=== PATIENT | female | born 1980 | race Caucasian/White ===

== ENCOUNTER 2018-04-07 18:05 | Emergency (ER) | payer SELFPAY ==
[2018-04-07 18:37] LABS: ABSOLUTE LYMPHOCYTES (AUTO) 1.8 10^3/uL (0.5-4.7); ABSOLUTE MONOCYTES (AUTO) 0.9 10^3/uL (0.1-1.4); ABSOLUTE NEUT (AUTO) 7.7 10^3/uL (1.7-8.2); BASOPHILS % (AUTO) 0.5 % (0-2); EOSINOPHILS % (AUTO) 0.4 % (0-6); HEMATOCRIT 36.5 % (36.0-47.0); HEMOGLOBIN 12.1 g/dL (12.0-15.5); LYMPHOCYTES % (AUTO) 16.9 % (13-45); MEAN CORPUSCULAR HEMOGLOBIN 29.4 pg (27.0-33.4); MEAN CORPUSCULAR HGB CONC 33.3 g/dL (32.0-36.0); MEAN CORPUSCULAR VOLUME 89 fl (80-97); MONOCYTES % (AUTO) 8.9 % (3-13); PLATELET COUNT 306 10^3/uL (150-450); RED BLOOD COUNT 4.13 10^6/uL (3.72-5.28); RED CELL DISTRIBUTION WIDTH 14.2 % (11.5-14.0); SEGMENTED NEUTROPHILS % (AUTO) 73.3 % (42-78); TOTAL CELLS COUNTED % (AUTO) 100 %; WHITE BLOOD COUNT 10.5 10^3/uL (4.0-10.5)
[2018-04-07] MEDS ORDERED: METOCLOPRAMIDE HCL INJ/PF 10 MG/2 ML SDV IV ONE (18:41)
[2018-04-07] MEDS ORDERED: NORMAL SALINE 1000 ML 1,000 ML IV ONE (18:41)
--- NOTE | 2018-04-07 18:50 | ER Document Report ---
ED General - General Chief Complaint: Chest Pain Stated Complaint: CHEST PAIN Time Seen by Provider: 04/07/18 18:18 Notes: Patient is a 37-year-old female with a past medical history of Crohn's disease who presents with complaints of an acute onset headache and chest pain. The patient states that this started abruptly at approximately 5:15 PM while she was getting gasoline. The patient states that the headache is located to the left side of her head and is a severe, constant, stabbing pain worsened by light. Nothing improves the headache. She denies any history of similar headaches in the past. Headache has been relatively unchanged since onset. She also describes a stabbing pain to the left side of her chest radiating into her left upper extremity. Nothing seems to improve or worsen the symptom. EMS was contacted, give aspirin nitroglycerin with minimal improvement of the patient's symptoms. She has not spoken to her primary doctor regarding today's concerns. She denies any prior history of migraine headaches. She denies any focal weakness or numbness but does states that she feels globally tired and weak. TRAVEL OUTSIDE OF THE [place] IN LAST 30 DAYS: No - Related Data Allergies/Adverse Reactions: hydrocodone [Hydrocodone] Adverse Reaction (Verified 04/07/18 18:08) Past Medical History - Social History Smoking Status: Unknown if Ever Smoked Chew tobacco use (# tins/day): No Frequency of alcohol use: None Drug Abuse: None Family History: Reviewed & Not Pertinent Patient has suicidal ideation: No Patient has homicidal ideation: No Renal/ Medical History: Denies: Hx Peritoneal Dialysis GI Medical History: Reports: Hx Crohn's Disease Past Surgical History: Reports: Hx Tubal Ligation - Immunizations Immunizations up to date: Yes Hx Diphtheria, Pertussis, Tetanus Vaccination: No Physical Exam - Vital signs Vitals: Resp BP Pulse Ox 17 121/80 98 04/07/18 18:20 04/07/18 18:20 04/07/18 18:20 Course - Re-evaluation Re-evalutation: 04/07/18 18:51 Patient was seen shortly after arrival, no focal neurologic deficits on examination but is complaining of an acute onset headache as well as chest pain. The characterization and the acuity of her headache is worrisome for possible acute subarachnoid hemorrhage the patient will be sent acutely for a CT of the head to further clarify. Patient is obtain a CT of the head within 2 hours of onset of her headache and will be sufficient to exclude a subarachnoid hemorrhage. Regarding her chest pain: Given that the patient had chest pain and headache at the same time a carotid artery dissection will be a consideration although she has no neurologic symptoms to suggest this diagnosis. Will obtain a CTA of the neck to further clarify. Low clinical suspicion for an acute pulmonary embolus given her characterization of discomfort and absence of any shortness of breath. Patient was initially noted to be mildly tachycardic although this could be secondary to a pain response. ACS also seems unlikely given the characterization of her pain, normal EKG although we will proceed with cardiac marker testing to further clarify. Chest x-ray will also be obtained to further evaluate for a low probability of a pneumothorax. Will also provide symptomatic treatment with metoclopramide as well as IV fluids. Will reassess this in the CT scan imaging is completed. 04/07/18 22:30 Repeat troponin remains normal. CT imaging likewise unremarkable. Patient's symptoms have resolved. Conical presentation is most consistent with an acute migraine at this time. Her chest pain appears to potentially be related either to the migraine headache versus a muscle spasm of the chest wall given the otherwise normal workup. I have however encouraged her to follow-up closely with primary care doctor and consider stress testing. At this time will discharge with return precautions and follow-up recommendations. Verbal discharge instructions given a the bedside and opportunity for questions given. Medication warnings reviewed. Patient is in agreement with this plan and has verbalized understanding of return precautions and the need for primary care follow-up in the next 24-72 hours. - Vital Signs Vital signs: Temp Pulse Resp BP Pulse Ox 15 108/64 97 04/07/18 22:24 04/07/18 22:25 04/07/18 22:24 - Laboratory Result Diagrams: 04/07/18 18:20 04/07/18 18:20 Laboratory results interpreted by me: 04/07/18 04/07/18 18:20 18:20 RDW 14.2 H Sodium 146.3 H Potassium 3.3 L Chloride 108 H - Diagnostic Test Radiology reviewed: Image reviewed, Reports reviewed Radiology results interpreted by me: 04/07/18 22:30 CT head: No acute intracranial bleed or mass Chest x-ray: No acute infiltrate or pneumothorax - EKG Interpretation by Me Additional EKG results interpreted by me: 04/07/18 22:31 Sinus rhythm. Rate 94. No ST elevations or depressions. QTC is 431. Discharge - Discharge Clinical Impression: Chest pain Qualifiers: Chest pain type: unspecified Qualified Code(s): R07.9 - Chest pain, unspecified Acute headache Qualifiers: Headache type: unspecified Intractability: not intractable Qualified Code(s): R51 - Headache Condition: Good Disposition: HOME, SELF-CARE Additional Instructions: You were seen today for chest pain. The exact cause of your pain is unclear. However, based on your cardiac enzyme testing, chest x-ray, and EKG it does not appear that it is from an immediately life-threatening cause at this time. Although your testing here is normal is critical that you follow-up with your primary care physician for continued evaluation of this chest pain and possible stress testing. I recommended you see your physician within the next 24-48 hours to be evaluated for consideration of a stress test. Please return to emergency department immediately if you have worsening of your chest pain, shortness of breath, vomiting, become unable to exert yourself due to pain or difficulty breathing, you pass out, or have any pain that radiates into your arms, jaw, or back. Please also return if you have any additional symptoms that are concerning to you. You have been seen in the Emergency Department (ED) for a headache. Please use Tylenol (acetaminophen) or Motrin (ibuprofen) as needed for symptoms, but only as written on the box. As we have discussed, please follow up with your primary care doctor as soon as possible regarding today's ED visit and your headache symptoms. Call your doctor or return to the ED if you have a worsening headache, sudden and severe headache, confusion, slurred speech, facial droop, weakness or numbness in any arm or leg, extreme fatigue, or other symptoms that concern you.
[2018-04-07 19:00] LABS: ANION GAP 13 (5-19); BLOOD UREA NITROGEN 9 mg/dL (7-20); CALCIUM 9.4 mg/dL (8.4-10.2); CARBON DIOXIDE 25 mmol/L (22-30); CHLORIDE 108 mmol/L (98-107); GLUCOSE 110 mg/dL (75-110); POTASSIUM 3.3 mmol/L (3.6-5.0); SODIUM 146.3 mmol/L (137-145)
--- NOTE | 2018-04-07 19:06 | RADIOLOGY REPORT (SQ) ---
EXAM DESCRIPTION: CT HEAD WITHOUT COMPLETED DATE/TIME: 04/07/2018 6:47 pm REASON FOR STUDY: eval sah. Weakness, dizziness, headache. COMPARISON: None. TECHNIQUE: Axial images acquired through the brain without intravenous contrast. Images reviewed wi th bone, brain and subdural windows. Images stored on PACS. All CT scanners at this facility use dose modulation, iterative reconstruction, and/or weight based d osing when appropriate to reduce radiation dose to as low as reasonably achievable (ALARA). [facility]: Dose Right [facility]: CareDose [facility]: Dose Right [facility]: Teradose 4D [facility]: Social Moov RADIATION DOSE: CT Rad equipment meets quality standard of care and radiation dose reduction techniq ues were employed. CTDIvol: 53.2 mGy. DLP: 1044 mGy-cm. mGy. LIMITATIONS: None. FINDINGS: VENTRICLES: Normal size and contour. CEREBRUM: No mass effect. No hemorrhage. No midline shift. Normal wheatley/white matter differentiatio n. No evidence for acute territorial infarction. CEREBELLUM: No mass effect. No hemorrhage. No alteration of density. No evidence for acute infarct ion. EXTRAAXIAL SPACES: No fluid collections. ORBITS AND GLOBE: Symmetrical contour of the globes. CALVARIUM: No depressed skull fracture. PARANASAL SINUSES: No air-fluid level. SOFT TISSUES: No hematoma. IMPRESSION: No acute intracranial hemorrhage or acute territorial infarct. EVIDENCE OF ACUTE STROKE: NO. COMMENT: Quality ID # 436: Final reports with documentation of one or more dose reduction techniques (e.g., Automated exposure control, adjustment of the mA and/or kV according to patient size, use of iterative reconstruction technique) TECHNICAL DOCUMENTATION: JOB ID: [id number] 2010 [employer]- All Rights Reserved Reading location - IP/workstation name: [email or web address]
--- NOTE | 2018-04-07 19:25 | RADIOLOGY REPORT (SQ) ---
EXAM DESCRIPTION: CTA NECK COMPLETED DATE/TIME: 04/07/2018 6:56 pm REASON FOR STUDY: eval dissection . Dizziness, weakness, headache. COMPARISON: None. TECHNIQUE: Axial dynamic scanning technique with dynamic contrast enhancement through the extra-scrap drop operator nial carotid and vertebral arteries. Multiplanar reconstruction. 3-D MIPS and Volume-rendered imag es acquired at the workstation and saved to PACS. Images are reviewed in soft tissue, bone, lung w indows. All CT scanners at this facility use dose modulation, iterative reconstruction, and/or weight based d osing when appropriate to reduce radiation dose to as low as reasonably achievable (ALARA). [facility]: Dose Right [facility]: CareDose [facility]: Dose Right [facility]: Teradose 4D [facility]: Wavestream CONTRAST TYPE AND DOSE: contrast/concentration: Isovue 370.00 mg/ml; Total Contrast Delivered: 70.0 ml; Total Saline Delivered: 55.0 ml RENAL FUNCTION: None required. The patient is less than 50 years old. LIMITATIONS: None. FINDINGS: AORTIC ARCH: Normal three-vessel origin. Bilateral subclavian arteries are patent. No d issection. RIGHT CAROTIDS: Patent common, internal and external carotid arteries without suggestion of significa nt stenosis or irregular plaque. No dissection. RIGHT VERTEBRAL: Patent. No dissection. LEFT CAROTIDS: Patent common, internal and external carotid arteries without suggestion of significan t stenosis or irregular plaque. No dissection. LEFT VERTEBRAL: Patent. No dissection. OTHER: 3-D reconstructions confirm findings. IMPRESSION: NORMAL CTA OF THE EXTRA-CRANIAL CAROTID AND VERTEBRAL ARTERIES. COMMENT: Quality ID #[id number]: Measurements of distal internal carotid diameter were used as the denomina tor for stenosis measurement. TECHNICAL DOCUMENTATION: JOB ID: [id number] Quality ID # 436: Final reports with documentation of one or more dose reduction techniques (e.g., Au tomated exposure control, adjustment of the mA and/or kV according to patient size, use of iterative reconstruction technique) 2010 [employer]- All Rights Reserved Reading location - IP/workstation name: [email or web address]
[2018-04-07] MEDS ORDERED: KETOROLAC TROMETHAMINE INJ/PF 30 MG/1 ML SDV IV ONE (19:26)
--- NOTE | 2018-04-07 19:38 | RADIOLOGY REPORT (SQ) ---
EXAM DESCRIPTION: CHEST SINGLE VIEW COMPLETED DATE/TIME: 04/07/2018 6:58 pm REASON FOR STUDY: cp COMPARISON: Chest x-ray 10/22/2011. EXAM PARAMETERS: NUMBER OF VIEWS: One view. TECHNIQUE: Single frontal radiographic view of the chest acquired. RADIATION DOSE: NA LIMITATIONS: None. FINDINGS: LUNGS AND PLEURA: No consolidation, pneumothorax or pleural effusion. MEDIASTINUM AND HILAR STRUCTURES: No masses. Contour normal. HEART AND VASCULAR STRUCTURES: Heart normal in size. Normal vasculature. BONES: No acute findings. HARDWARE: None in the chest. IMPRESSION: NO ACUTE RADIOGRAPHIC FINDING IN THE CHEST. TECHNICAL DOCUMENTATION: JOB ID: [id number] [id number] 2010 [employer]- All Rights Reserved Reading location - IP/workstation name: [email or web address]
[2018-04-07 22:27] VITALS: BP 108/64
--- NOTE | 2018-04-07 23:03 | EKG REPORT ---
SEVERITY:- NORMAL ECG - SINUS RHYTHM : Confirmed by: Modesto Hernandez 07-Apr-2018 23:02:36
== END 2018-04-07 22:36 | disposition home or self-care (01) ==
LOC: ER 18:05
DX: R07.9 Chest pain, unspecified (principal); R51 Headache; R53.1 Weakness; R53.83 Other fatigue; R00.0 Tachycardia, unspecified
CPT/HCPCS: 93005; 99285; 96361; 96374; 96375; 36415; 84703; 85025; 80048; 84484; 71045; 70450; 70498; 93010; J1885; J2765; J7030